=== PATIENT | male | born 1950 | race Caucasian/White ===

== ENCOUNTER 2020-12-03 04:10 | Day surgery (SDC) | payer OTHER ==
[2020-11-30 14:33] VITALS: BMI 24.9
[2020-12-03] MEDS ORDERED: LIDOCAINE HCL 1%, 10 MG/ML (20ML VIAL) PNB ONE (12:50)
[2020-12-03] MEDS ORDERED: ONDANSETRON 4 MG/2 ML VIAL IVPUSH PRN (14:03)
[2020-12-03] MEDS ORDERED: ACETAMINOPHEN 325 MG TABLET (FP) PO PRN (14:03)
[2020-12-03 15:13] VITALS: TEMP 98
[2020-12-03 15:34] VITALS: BP 163/68; PULSE 80
== END 2020-12-03 15:40 | disposition home or self-care (01) ==
LOC: JASU-SURG 04:10
PROVIDERS: ATTEND Surgery Vascular Surgery
PROC: 03180ZD Bypass Left Brachial Artery to Upper Arm Vein, Open Approach (ICD-10-PCS; principal; 2020-12-03 10:30)
DX: I12.0 Hypertensive chronic kidney disease with stage 5 chronic kidney disease or end stage renal disease (principal); E11.22 Type 2 diabetes mellitus with diabetic chronic kidney disease; N18.6 End stage renal disease; Z99.2 Dependence on renal dialysis
CPT/HCPCS: 94760; J1644

== ENCOUNTER 2021-03-04 04:05 | Inpatient (IN) | payer OTHER ==
[2021-03-03 16:26] VITALS: BMI 24.3
[2021-03-04] MEDS ORDERED: PROPOFOL 20 ML ONE (11:14)
[2021-03-04] MEDS ORDERED: MIDAZOLAM HCL 2 MG/2 ML SINGLE DOSE VIAL ONE (11:15)
[2021-03-04] MEDS ORDERED: ceFAZolin SODIUM 1 GM VIAL IVPB ONE (11:35)
[2021-03-04] MEDS ORDERED: ceFAZolin SODIUM 1 GM VIAL ONE (11:41)
[2021-03-04] MEDS ORDERED: LIDOCAINE HCL 1%, 10 MG/ML (20ML VIAL) INF ONE (11:43)
[2021-03-04] MEDS ORDERED: HEPARIN NA (PORCINE) 5,000 UNITS/ML 1ML VIAL SQ ONE (12:00)
[2021-03-04] MEDS ORDERED: FUROSEMIDE 40 MG/4 ML INJECTABLE VIAL IVPUSH ONE ×2 (14:30→17:23)
[2021-03-04] MEDS ORDERED: FUROSEMIDE 40 MG/4 ML INJECTABLE VIAL ONE (14:42)
[2021-03-04 18:29] LABS: BASO % 0.4 % (0-2.0); EOS % 1.3 % (0-4.5); HEMATOCRIT 32.3 % (35.4-49); HEMOGLOBIN 10.9 GM/dL (11.7-16.9); LYMPH % 18.3 % (8-40); MCH 34.2 pg (25.7-33.7); MCHC 33.9 g/dl (32.0-35.9); MEAN CELL VOLUME 100.9 fl (80-96); MEAN PLT VOLUME 8.8 fl (7.5-11.1); MONO % 16.5 % (3.8-10.2); NEUT % 63.5 % (42.8-82.8); PLATELET COUNT 169 K/MM3 (134-434); RDW 15.9 % (11.9-15.9); WHITE BLOOD COUNT 6.9 K/mm3 (4.0-10.0)
[2021-03-04 18:33] LABS: INR 1.1 (0.83-1.09); PROTHROMBIN TIME (PATIENT) 13.3 SEC (9.7-13.0)
[2021-03-04 18:36] LABS: ACTIVATED PTT 27.4 SECONDS (25.2-36.5)
[2021-03-04 18:47] LABS: CALCIUM 7.7 mg/dL (8.5-10.1)
[2021-03-04 18:48] LABS: ALBUMIN 2.4 g/dl (3.4-5.0); BLOOD UREA NITROGEN 77.9 mg/dL (7-18); MAGNESIUM 2.3 mg/dL (1.8-2.4)
[2021-03-04 18:51] LABS: CREATININE 4.1 mg/dL (0.55-1.3); PHOSPHOROUS 4.1 mg/dL (2.5-4.9)
[2021-03-04 18:52] LABS: BILIRUBIN,TOTAL 0.6 mg/dL (0.2-1); TOT PROT 5.8 g/dl (6.4-8.2)
[2021-03-04 19:26] LABS: N-TERMINAL BNP 42122.8 pg/ml (5-125)
[2021-03-04] MEDS: FUROSEMIDE 40 MG TABLET (FP) PO SCH (21:35)
[2021-03-05] MEDS ORDERED: PATIENT'S OWN MEDICATION (NON-FORMULARY) (Hydralazine Hcl [Hydralazine Hcl] 100 MG Tablet) PO SCH (08:30)
[2021-03-05] MEDS ORDERED: SODIUM ZIRCONIUM CYCLOSILICATE (LOKELMA) 5 GM PACKET PO SCH (08:30)
[2021-03-05] MEDS: FUROSEMIDE 40 MG TABLET (FP) PO SCH ×2 (09:24→21:23)
[2021-03-05] MEDS: CITALOPRAM HYDROBROMIDE 20 MG TABLET PO SCH (09:24)
[2021-03-05] MEDS: ISOSORBIDE MONONITRATE 60 MG TAB.SR.24H (FP) PO SCH (09:29)
[2021-03-05] MEDS ORDERED: APIXABAN 5 MG TABLET PO SCH (10:00)
[2021-03-05] MEDS: hydrALAZINE HCL 25 MG TABLET (FP) PO SCH ×3 (10:47→21:23)
[2021-03-05 11:51] LABS: BASO % 0.3 % (0-2.0); EOS % 1.1 % (0-4.5); HEMOGLOBIN 10.9 GM/dL (11.7-16.9); LYMPH % 9.9 % (8-40); MCH 33.9 pg (25.7-33.7); MCHC 33.2 g/dl (32.0-35.9); MEAN CELL VOLUME 102.3 fl (80-96); MEAN PLT VOLUME 8.5 fl (7.5-11.1); MONO % 11.3 % (3.8-10.2); NEUT % 77.4 % (42.8-82.8); PLATELET COUNT 164 K/MM3 (134-434); RBC 3.22 M/mm3 (4.00-5.60); RDW 15.7 % (11.9-15.9); WHITE BLOOD COUNT 8.4 K/mm3 (4.0-10.0)
[2021-03-05 12:23] LABS: CALCIUM 7.6 mg/dL (8.5-10.1)
[2021-03-05 12:24] LABS: ALBUMIN 2.3 g/dl (3.4-5.0)
[2021-03-05 12:28] LABS: BILIRUBIN,TOTAL 0.8 mg/dL (0.2-1); TOT PROT 5.4 g/dl (6.4-8.2)
[2021-03-05] MEDS ORDERED: HALOPERIDOL LACTATE 5 MG/ML IM ONE (15:01)
[2021-03-05] MEDS ORDERED: PT OWN MED DRAWER 7, Y5N ONE (21:17)
[2021-03-05] MEDS: MEMANTINE HCL 5 MG TABLET (UD) PO SCH (21:23)
[2021-03-05] MEDS: APIXABAN 5 MG TABLET PO SCH (21:23)
[2021-03-05] MEDS: ATORVASTATIN CA 80 MG TABLET (FP) PO SCH (21:23)
[2021-03-06] MEDS: hydrALAZINE HCL 25 MG TABLET (FP) PO SCH ×3 (05:22→21:27)
[2021-03-06] MEDS: CITALOPRAM HYDROBROMIDE 20 MG TABLET PO SCH (09:13)
[2021-03-06] MEDS: ISOSORBIDE MONONITRATE 60 MG TAB.SR.24H (FP) PO SCH (09:13)
[2021-03-06] MEDS: FUROSEMIDE 40 MG TABLET (FP) PO SCH ×2 (09:13→21:27)
[2021-03-06] MEDS: APIXABAN 5 MG TABLET PO SCH ×2 (09:13→21:27)
[2021-03-06 12:56] LABS: BASO % 0.5 % (0-2.0); HEMATOCRIT 35.6 % (35.4-49); HEMOGLOBIN 11.9 GM/dL (11.7-16.9); LYMPH % 9.2 % (8-40); MCH 33.9 pg (25.7-33.7); MCHC 33.5 g/dl (32.0-35.9); MEAN CELL VOLUME 101.1 fl (80-96); MONO % 11.5 % (3.8-10.2); NEUT % 76.8 % (42.8-82.8); PLATELET COUNT 167 K/MM3 (134-434); RBC 3.52 M/mm3 (4.00-5.60); WHITE BLOOD COUNT 8.9 K/mm3 (4.0-10.0)
[2021-03-06 13:19] LABS: ALBUMIN 2.6 g/dl (3.4-5.0); BLOOD UREA NITROGEN 68.7 mg/dL (7-18); CALCIUM 7.9 mg/dL (8.5-10.1)
[2021-03-06 13:23] LABS: CREATININE 3.6 mg/dL (0.55-1.3)
[2021-03-06 13:25] LABS: TOT PROT 6.3 g/dl (6.4-8.2)
[2021-03-06] MEDS ORDERED: PT OWN MED DRAWER 7, Y5N ONE (21:23)
[2021-03-06] MEDS: ATORVASTATIN CA 80 MG TABLET (FP) PO SCH (21:27)
[2021-03-06] MEDS: MEMANTINE HCL 5 MG TABLET (UD) PO SCH (21:27)
[2021-03-07] MEDS: hydrALAZINE HCL 25 MG TABLET (FP) PO SCH ×3 (05:40→20:59)
[2021-03-07 07:06] LABS: BLOOD UREA NITROGEN 72.2 mg/dL (7-18)
[2021-03-07] MEDS: APIXABAN 5 MG TABLET PO SCH ×2 (09:41→21:00)
[2021-03-07] MEDS: CITALOPRAM HYDROBROMIDE 20 MG TABLET PO SCH (09:41)
[2021-03-07] MEDS ORDERED: ALBUTEROL SO4 HFA INHALER IH PRN (09:41)
[2021-03-07] MEDS: FUROSEMIDE 40 MG TABLET (FP) PO SCH ×2 (09:41→21:00)
[2021-03-07] MEDS: ISOSORBIDE MONONITRATE 60 MG TAB.SR.24H (FP) PO SCH (09:41)
[2021-03-07] MEDS: ALBUTEROL SO4 2.5/IPRATROPIUM 0.5 INH SOL 3 ML VIAL.NEB. NEB PRN ×2 (10:04→21:00)
[2021-03-07] MEDS ORDERED: PT OWN MED DRAWER 7, Y5N ONE (20:50)
[2021-03-07] MEDS: MEMANTINE HCL 5 MG TABLET (UD) PO SCH (21:01)
[2021-03-07] MEDS: ATORVASTATIN CA 80 MG TABLET (FP) PO SCH (21:01)
[2021-03-08] MEDS: hydrALAZINE HCL 25 MG TABLET (FP) PO SCH ×3 (05:18→21:19)
[2021-03-08] MEDS: CITALOPRAM HYDROBROMIDE 20 MG TABLET PO SCH (09:06)
[2021-03-08] MEDS: FUROSEMIDE 40 MG TABLET (FP) PO SCH (09:06)
[2021-03-08] MEDS: APIXABAN 5 MG TABLET PO SCH ×2 (09:06→21:19)
[2021-03-08] MEDS: ISOSORBIDE MONONITRATE 60 MG TAB.SR.24H (FP) PO SCH (09:06)
[2021-03-08] MEDS ORDERED: FUROSEMIDE 40 MG/4 ML INJECTABLE VIAL IVPUSH SCH ×2 (13:06→20:00)
[2021-03-08] MEDS ORDERED: PT OWN MED DRAWER 7, Y5N ONE (21:03)
[2021-03-08] MEDS: ATORVASTATIN CA 80 MG TABLET (FP) PO SCH (21:19)
[2021-03-08] MEDS: MEMANTINE HCL 5 MG TABLET (UD) PO SCH (21:19)
[2021-03-08 23:15] VITALS: BP 145/58; PULSE 73; TEMP 97.5
== END 2021-03-08 22:45 | DRG 447 ==
LOC: JASU-SURG 04:05 → J2C 16:52 → UNDOADMIN 17:06 → J4S 20:10
PROVIDERS: ADMIT Surgery Vascular Surgery; ATTEND Student in an Organized Health Care Education/Training Program
PROC: 037Y3ZZ Dilation of Upper Artery, Percutaneous Approach (ICD-10-PCS; 2021-03-04)
PROC: B50NYZZ Plain Radiography of Left Upper Extremity Veins using Other Contrast (ICD-10-PCS; principal; 2021-03-04 10:30)
DX: I12.0 Hypertensive chronic kidney disease with stage 5 chronic kidney disease or end stage renal disease (principal); I48.91 Unspecified atrial fibrillation; F03.90 Unspecified dementia, unspecified severity, without behavioral disturbance, psychotic disturbance, mood disturbance, and anxiety; N18.6 End stage renal disease; J44.9 Chronic obstructive pulmonary disease, unspecified; E87.6 Hypokalemia; Z79.01 Long term (current) use of anticoagulants; Z99.2 Dependence on renal dialysis
CPT/HCPCS: 36415; 71045-TC-FY; 76000-TC-FY; 80048; 80053; 80061; 83036; 83721; 83735; 83880; 84100; 84436; 84443; 84484; 85025; 85610; 85730; 94010; 94640; 94760; 94761; 97116-GP; 97161-GP; C9803; J1644; U0003; U0005

== ENCOUNTER 2021-03-20 16:40 | Inpatient (IN) | payer OTHER ==
[2021-03-20 17:11] VITALS: BMI 29.7
[2021-03-20 18:08] LABS: VENOUS BASE EXCESS 0.5 mmol/L (-2-2); VENOUS O2 SATURATION 87.2 % (70-80); VENOUS PCO2 43.7 mmHg (38-52); VENOUS PH 7.387 (7.310-7.410)
[2021-03-20 18:11] LABS: BASO % 0.7 % (0-2.0); EOS % 0.1 % (0-4.5); MCH 33.4 pg (25.7-33.7); MCHC 33.3 g/dl (32.0-35.9); MEAN CELL VOLUME 100.2 fl (80-96); MONO % 4.2 % (3.8-10.2); PLATELET COUNT 265 10^3/uL (134-434); RBC 3.59 M/mm3 (4.00-5.60); RDW 15.6 % (11.9-15.9); WHITE BLOOD COUNT 10.5 K/mm3 (4.0-10.0)
[2021-03-20 18:16] LABS: INR 1.34 (0.83-1.09); PROTHROMBIN TIME (PATIENT) 16.1 SEC (9.7-13.0)
[2021-03-20 18:19] LABS: ACTIVATED PTT 26.4 SECONDS (25.2-36.5)
[2021-03-20 18:34] LABS: CHLORIDE 102 mmol/L (98-107); SODIUM 136 mmol/L (136-145)
[2021-03-20 18:36] LABS: CALCIUM 8.5 mg/dL (8.5-10.1)
[2021-03-20 18:37] LABS: ALBUMIN 2.7 g/dl (3.4-5.0); ANION GAP 10 MMOL/L (8-16); CO2 24 mmol/L (21-32); MAGNESIUM 2.8 mg/dL (1.8-2.4)
[2021-03-20 18:40] LABS: CREATININE 3.7 mg/dL (0.55-1.3); SGPT/ALT 350 U/L (13-61)
[2021-03-20 18:41] LABS: BILIRUBIN,TOTAL 0.5 mg/dL (0.2-1)
[2021-03-20 18:42] LABS: TOT PROT 6.5 g/dl (6.4-8.2)
[2021-03-20 18:43] LABS: ALK PHOS 133 U/L (45-117)
[2021-03-20 18:51] LABS: SGOT/AST 988 U/L (15-37)
[2021-03-20 19:02] LABS: BLOOD UREA NITROGEN 120.8 mg/dL (7-18); GLUCOSE,RANDOM 109 mg/dL (74-106)
[2021-03-21 00:27] LABS: CHLORIDE 102 mmol/L (98-107); SODIUM 136 mmol/L (136-145)
[2021-03-21 00:28] LABS: CALCIUM 8.3 mg/dL (8.5-10.1)
[2021-03-21 00:29] LABS: ANION GAP 8 MMOL/L (8-16); CO2 26 mmol/L (21-32); GLUCOSE,RANDOM 80 mg/dL (74-106)
[2021-03-21 00:32] LABS: CREATININE 3.8 mg/dL (0.55-1.3)
[2021-03-21] MEDS ORDERED: ALBUTEROL SO4 2.5/IPRATROPIUM 0.5 INH SOL 3 ML VIAL.NEB. NEB PRN (03:36)
[2021-03-21] MEDS ORDERED: SODIUM ZIRCONIUM CYCLOSILICATE (LOKELMA) 5 GM PACKET PO SCH (03:45)
[2021-03-21] MEDS ORDERED: hydrALAZINE HCL 25 MG TABLET (FP) ONE (05:12)
[2021-03-21] MEDS: hydrALAZINE HCL 50 MG TABLET (FP) PO SCH ×3 (05:15→21:10)
[2021-03-21] MEDS ORDERED: DEXTROSE 5%-NORMAL SALINE 1,000 ML IV SCH ×2 (08:00)
[2021-03-21] MEDS ORDERED: ISOSORBIDE MONONITRATE 60 MG TAB.SR.24H (FP) PO ONE (08:56)
[2021-03-21] MEDS ORDERED: APIXABAN 5 MG TABLET ONE (08:56)
[2021-03-21] MEDS ORDERED: predniSONE 10 MG TABLET (UD) ONE (08:56)
[2021-03-21] MEDS: CITALOPRAM HYDROBROMIDE 20 MG TABLET PO SCH (09:01)
[2021-03-21] MEDS: predniSONE 10 MG TABLET (UD) PO SCH (09:01)
[2021-03-21] MEDS: ISOSORBIDE MONONITRATE 60 MG TAB.SR.24H (FP) PO SCH (09:01)
[2021-03-21] MEDS: APIXABAN 5 MG TABLET PO SCH ×2 (09:01→21:10)
[2021-03-21 12:20] LABS: BASO % 0.5 % (0-2.0); EOS % 0.5 % (0-4.5); HEMATOCRIT 38.6 % (35.4-49); HEMOGLOBIN 12.8 GM/dL (11.7-16.9); LYMPH % 6.4 % (8-40); MCH 33.4 pg (25.7-33.7); MCHC 33.1 g/dl (32.0-35.9); MEAN CELL VOLUME 100.9 fl (80-96); MEAN PLT VOLUME 8.5 fl (7.5-11.1); NEUT % 88.6 % (42.8-82.8); PLATELET COUNT 273 10^3/uL (134-434); RBC 3.82 M/mm3 (4.00-5.60); RDW 15.6 % (11.9-15.9); WHITE BLOOD COUNT 13.3 K/mm3 (4.0-10.0)
[2021-03-21 12:46] LABS: CHLORIDE 100 mmol/L (98-107); SODIUM 135 mmol/L (136-145)
[2021-03-21 12:48] LABS: CALCIUM 8.5 mg/dL (8.5-10.1)
[2021-03-21 12:49] LABS: ALBUMIN 2.6 g/dl (3.4-5.0); ANION GAP 11 MMOL/L (8-16); CO2 23 mmol/L (21-32); GLUCOSE,RANDOM 143 mg/dL (74-106); MAGNESIUM 2.8 mg/dL (1.8-2.4)
[2021-03-21 12:52] LABS: CREATININE 3.8 mg/dL (0.55-1.3); SGPT/ALT 430 U/L (13-61)
[2021-03-21 12:54] LABS: BILIRUBIN,TOTAL 0.8 mg/dL (0.2-1); TOT PROT 6.4 g/dl (6.4-8.2)
[2021-03-21 12:55] LABS: ALK PHOS 115 U/L (45-117)
[2021-03-21 13:39] LABS: BLOOD UREA NITROGEN 121.6 mg/dL (7-18); SGOT/AST 1183 U/L (15-37)
[2021-03-21] MEDS ORDERED: SODIUM CHLORIDE 250 ML IV PRN (14:41)
[2021-03-21] MEDS: SODIUM ZIRCONIUM CYCLOSILICATE (LOKELMA) 5 GM PACKET PO SCH (15:15)
[2021-03-21] MEDS ORDERED: ACETAMINOPHEN 325 MG TABLET (FP) PO PRN ×2 (17:15→17:28)
[2021-03-21] MEDS: MEMANTINE HCL 5 MG TABLET (UD) PO SCH (21:10)
[2021-03-22] MEDS: hydrALAZINE HCL 50 MG TABLET (FP) PO SCH ×3 (05:23→22:37)
[2021-03-22 06:47] LABS: HEMOGLOBIN 12.2 GM/dL (11.7-16.9); MCH 33.2 pg (25.7-33.7); MCHC 33.1 g/dl (32.0-35.9); MEAN CELL VOLUME 100.3 fl (80-96); PLATELET COUNT 261 10^3/uL (134-434); RBC 3.69 M/mm3 (4.00-5.60); RDW 15.7 % (11.9-15.9); WHITE BLOOD COUNT 13.6 K/mm3 (4.0-10.0)
[2021-03-22 07:06] LABS: CHLORIDE 100 mmol/L (98-107); SODIUM 135 mmol/L (136-145)
[2021-03-22 07:18] LABS: ALBUMIN 2.3 g/dl (3.4-5.0); ANION GAP 12 MMOL/L (8-16); CO2 23 mmol/L (21-32); GLUCOSE,RANDOM 67 mg/dL (74-106); MAGNESIUM 2.9 mg/dL (1.8-2.4)
[2021-03-22 07:21] LABS: SGPT/ALT 493 U/L (13-61)
[2021-03-22 07:22] LABS: BILIRUBIN,TOTAL 0.7 mg/dL (0.2-1)
[2021-03-22 07:23] LABS: TOT PROT 5.7 g/dl (6.4-8.2)
[2021-03-22 07:24] LABS: ALK PHOS 101 U/L (45-117)
[2021-03-22 08:00] LABS: SGOT/AST 1380 U/L (15-37)
[2021-03-22] MEDS ORDERED: SODIUM CHLORIDE 1,000 ML IV SCH ×2 (08:45→11:44)
[2021-03-22] MEDS: APIXABAN 5 MG TABLET PO SCH ×2 (10:42→22:37)
[2021-03-22] MEDS: CITALOPRAM HYDROBROMIDE 20 MG TABLET PO SCH (10:42)
[2021-03-22] MEDS: predniSONE 10 MG TABLET (UD) PO SCH (10:42)
[2021-03-22] MEDS: ISOSORBIDE MONONITRATE 60 MG TAB.SR.24H (FP) PO SCH (10:43)
[2021-03-22] MEDS: SODIUM ZIRCONIUM CYCLOSILICATE (LOKELMA) 5 GM PACKET PO SCH (10:43)
[2021-03-22] MEDS: MEMANTINE HCL 5 MG TABLET (UD) PO SCH (22:37)
[2021-03-23] MEDS: hydrALAZINE HCL 50 MG TABLET (FP) PO SCH ×3 (05:45→22:49)
[2021-03-23 07:39] LABS: CHLORIDE 102 mmol/L (98-107); SODIUM 136 mmol/L (136-145)
[2021-03-23 07:42] LABS: ALBUMIN 2.1 g/dl (3.4-5.0)
[2021-03-23 07:43] LABS: ANION GAP 12 MMOL/L (8-16); CALCIUM 7.5 mg/dL (8.5-10.1); CO2 22 mmol/L (21-32)
[2021-03-23 07:44] LABS: BILIRUBIN,DIRECT 0.2 mg/dL (0.0-0.2); CREATININE 4.3 mg/dL (0.55-1.3); SGPT/ALT 654 U/L (13-61)
[2021-03-23 07:46] LABS: BILIRUBIN,TOTAL 0.6 mg/dL (0.2-1); TOT PROT 5.4 g/dl (6.4-8.2)
[2021-03-23 07:47] LABS: ALK PHOS 91 U/L (45-117)
[2021-03-23 07:56] LABS: BLOOD UREA NITROGEN 117.1 mg/dL (7-18); GLUCOSE,RANDOM 83 mg/dL (74-106); SGOT/AST 1801 U/L (15-37)
[2021-03-23 08:10] LABS: INR 1.35 (0.83-1.09); PROTHROMBIN TIME (PATIENT) 16.5 SEC (9.7-13.0)
[2021-03-23] MEDS ORDERED: PT OWN MED DRAWER 7, Y5N ONE (09:02)
[2021-03-23] MEDS: APIXABAN 5 MG TABLET PO SCH ×2 (09:51→22:49)
[2021-03-23] MEDS: CITALOPRAM HYDROBROMIDE 20 MG TABLET PO SCH (09:51)
[2021-03-23] MEDS: SODIUM ZIRCONIUM CYCLOSILICATE (LOKELMA) 5 GM PACKET PO SCH (09:52)
[2021-03-23] MEDS: predniSONE 10 MG TABLET (UD) PO SCH (09:54)
[2021-03-23] MEDS: ISOSORBIDE MONONITRATE 60 MG TAB.SR.24H (FP) PO SCH (09:54)
[2021-03-23] MEDS: MEMANTINE HCL 5 MG TABLET (UD) PO SCH (22:49)
[2021-03-24] MEDS: hydrALAZINE HCL 50 MG TABLET (FP) PO SCH ×3 (06:00→21:38)
[2021-03-24 08:43] LABS: EPI CELLS >36 /uL (0-25.1); HYALINE CASTS 2 /uL (0-3.1); URINE APPEARANCE CLEAR; URINE BACTERIA 31 /uL (0-1359); URINE BILIRUBIN NEGATIVE (NEGATIVE); URINE COLOR ORANGE; URINE GLUCOSE (UA) NEGATIVE (NEGATIVE); URINE KETONE NEGATIVE (NEGATIVE); URINE LEUK ESTERASE TRACE (NEGATIVE); URINE NITRITE NEGATIVE (NEGATIVE); URINE PROTEIN 3+ (NEGATIVE); URINE RBC 44 /uL (0-23.9); URINE WBC 26 /uL (0-25.8)
[2021-03-24] MEDS: predniSONE 10 MG TABLET (UD) PO SCH (09:38)
[2021-03-24] MEDS: ISOSORBIDE MONONITRATE 60 MG TAB.SR.24H (FP) PO SCH (09:38)
[2021-03-24] MEDS: APIXABAN 5 MG TABLET PO SCH ×2 (09:38→21:38)
[2021-03-24] MEDS: CITALOPRAM HYDROBROMIDE 20 MG TABLET PO SCH (09:38)
[2021-03-24] MEDS: MEMANTINE HCL 5 MG TABLET (UD) PO SCH (21:38)
[2021-03-25] MEDS: hydrALAZINE HCL 50 MG TABLET (FP) PO SCH ×3 (06:37→21:31)
[2021-03-25] MEDS: APIXABAN 5 MG TABLET PO SCH ×2 (13:36→21:31)
[2021-03-25] MEDS: CITALOPRAM HYDROBROMIDE 20 MG TABLET PO SCH (13:36)
[2021-03-25] MEDS: ISOSORBIDE MONONITRATE 60 MG TAB.SR.24H (FP) PO SCH (13:36)
[2021-03-25] MEDS: predniSONE 10 MG TABLET (UD) PO SCH (13:36)
[2021-03-25 13:48] LABS: BASO % 0.4 % (0-2.0); EOS % 2.2 % (0-4.5); HEMATOCRIT 38.9 % (35.4-49); HEMOGLOBIN 12.5 GM/dL (11.7-16.9); LYMPH % 7.3 % (8-40); MCH 32.6 pg (25.7-33.7); MEAN CELL VOLUME 101.8 fl (80-96); MEAN PLT VOLUME 8.7 fl (7.5-11.1); MONO % 5.1 % (3.8-10.2); PLATELET COUNT 250 10^3/uL (134-434); RBC 3.82 M/mm3 (4.00-5.60); WHITE BLOOD COUNT 12.9 K/mm3 (4.0-10.0)
[2021-03-25 14:11] LABS: CHLORIDE 99 mmol/L (98-107); SODIUM 135 mmol/L (136-145)
[2021-03-25 14:13] LABS: ALBUMIN 2.1 g/dl (3.4-5.0); ANION GAP 11 MMOL/L (8-16); BLOOD UREA NITROGEN 103.7 mg/dL (7-18); CALCIUM 7.8 mg/dL (8.5-10.1); CO2 25 mmol/L (21-32)
[2021-03-25 14:14] LABS: GLUCOSE,RANDOM 101 mg/dL (74-106)
[2021-03-25 14:16] LABS: BILIRUBIN,DIRECT 0.2 mg/dL (0.0-0.2); SGPT/ALT 845 U/L (13-61)
[2021-03-25 14:17] LABS: CREATININE 4.1 mg/dL (0.55-1.3)
[2021-03-25 14:18] LABS: BILIRUBIN,TOTAL 0.5 mg/dL (0.2-1); TOT PROT 5.1 g/dl (6.4-8.2)
[2021-03-25 14:19] LABS: ALK PHOS 75 U/L (45-117)
[2021-03-25 14:44] LABS: SGOT/AST 1531 U/L (15-37)
[2021-03-25] MEDS ORDERED: SODIUM CHLORIDE 1,000 ML IV SCH (17:00)
[2021-03-25] MEDS ORDERED: SODIUM CHLORIDE 250 ML IV PRN (17:00)
[2021-03-25] MEDS: MEMANTINE HCL 5 MG TABLET (UD) PO SCH (21:31)
[2021-03-26] MEDS: hydrALAZINE HCL 50 MG TABLET (FP) PO SCH ×3 (05:05→21:08)
[2021-03-26] MEDS ORDERED: SODIUM CHLORIDE 250 ML IV PRN (08:54)
[2021-03-26 08:57] LABS: HEMATOCRIT 38.5 % (35.4-49); HEMOGLOBIN 12.7 GM/dL (11.7-16.9); MCH 33.3 pg (25.7-33.7); MEAN CELL VOLUME 100.8 fl (80-96); MEAN PLT VOLUME 8.6 fl (7.5-11.1); PLATELET COUNT 224 10^3/uL (134-434); RBC 3.82 M/mm3 (4.00-5.60); RDW 16.3 % (11.9-15.9); WHITE BLOOD COUNT 15.2 K/mm3 (4.0-10.0)
[2021-03-26 09:18] LABS: CALCIUM 8.2 mg/dL (8.5-10.1)
[2021-03-26 09:19] LABS: BLOOD UREA NITROGEN 103.6 mg/dL (7-18)
[2021-03-26 09:22] LABS: CREATININE 4.4 mg/dL (0.55-1.3)
[2021-03-26] MEDS ORDERED: HEPARIN NA (PORCINE) 5,000 UNITS/ML 1ML VIAL IVPUSH ONE (10:15)
[2021-03-26] MEDS: APIXABAN 5 MG TABLET PO SCH ×2 (13:42→21:09)
[2021-03-26] MEDS: predniSONE 10 MG TABLET (UD) PO SCH (13:42)
[2021-03-26] MEDS: CITALOPRAM HYDROBROMIDE 20 MG TABLET PO SCH (13:42)
[2021-03-26] MEDS: ISOSORBIDE MONONITRATE 60 MG TAB.SR.24H (FP) PO SCH (13:43)
[2021-03-26] MEDS: MEMANTINE HCL 5 MG TABLET (UD) PO SCH (21:08)
[2021-03-27] MEDS: hydrALAZINE HCL 50 MG TABLET (FP) PO SCH ×3 (05:02→22:44)
[2021-03-27 08:05] LABS: BASO % 0.5 % (0-2.0); EOS % 0.8 % (0-4.5); HEMATOCRIT 37.2 % (35.4-49); HEMOGLOBIN 12.1 GM/dL (11.7-16.9); LYMPH % 11.4 % (8-40); MCH 32.9 pg (25.7-33.7); MCHC 32.5 g/dl (32.0-35.9); MEAN CELL VOLUME 101.1 fl (80-96); MEAN PLT VOLUME 9.6 fl (7.5-11.1); MONO % 6.1 % (3.8-10.2); NEUT % 81.2 % (42.8-82.8); PLATELET COUNT 229 10^3/uL (134-434); RBC 3.68 M/mm3 (4.00-5.60); WHITE BLOOD COUNT 14.5 K/mm3 (4.0-10.0)
[2021-03-27 08:23] LABS: CHLORIDE 100 mmol/L (98-107); SODIUM 137 mmol/L (136-145)
[2021-03-27 08:35] LABS: CALCIUM 7.5 mg/dL (8.5-10.1)
[2021-03-27 08:36] LABS: ANION GAP 9 MMOL/L (8-16); CO2 28 mmol/L (21-32); GLUCOSE,RANDOM 67 mg/dL (74-106)
[2021-03-27 08:39] LABS: CREATININE 3.3 mg/dL (0.55-1.3); SGOT/AST 937 U/L (15-37)
[2021-03-27 08:41] LABS: ALK PHOS 67 U/L (45-117)
[2021-03-27 08:42] LABS: BILIRUBIN,TOTAL 0.6 mg/dL (0.2-1); SGPT/ALT 724 U/L (13-61)
[2021-03-27 09:10] LABS: BLOOD UREA NITROGEN 60.9 mg/dL (7-18)
[2021-03-27] MEDS: ISOSORBIDE MONONITRATE 60 MG TAB.SR.24H (FP) PO SCH (09:28)
[2021-03-27] MEDS: CITALOPRAM HYDROBROMIDE 20 MG TABLET PO SCH (09:28)
[2021-03-27] MEDS: predniSONE 10 MG TABLET (UD) PO SCH (09:28)
[2021-03-27] MEDS: APIXABAN 5 MG TABLET PO SCH ×2 (09:28→22:44)
[2021-03-27 10:07] LABS: DRVVT - 78.2 sec (0.0-47.0); DRVVT CONFIRM SECONDS 0.9 ratio (0.8-1.2); dRVVT MIX 49.4 sec (0.0-40.4)
[2021-03-27] MEDS: MEMANTINE HCL 5 MG TABLET (UD) PO SCH (22:44)
[2021-03-28] MEDS: hydrALAZINE HCL 50 MG TABLET (FP) PO SCH ×3 (05:52→22:23)
[2021-03-28] MEDS: ISOSORBIDE MONONITRATE 60 MG TAB.SR.24H (FP) PO SCH (09:00)
[2021-03-28] MEDS: CITALOPRAM HYDROBROMIDE 20 MG TABLET PO SCH (09:00)
[2021-03-28] MEDS: predniSONE 10 MG TABLET (UD) PO SCH (09:00)
[2021-03-28] MEDS: APIXABAN 5 MG TABLET PO SCH ×2 (09:01→22:23)
[2021-03-28] MEDS ORDERED: SODIUM CHLORIDE 250 ML IV PRN (22:00)
[2021-03-28] MEDS: MEMANTINE HCL 5 MG TABLET (UD) PO SCH (22:23)
[2021-03-29] MEDS: hydrALAZINE HCL 50 MG TABLET (FP) PO SCH ×3 (06:16→21:20)
[2021-03-29 06:58] LABS: HEMOGLOBIN 11.1 GM/dL (11.7-16.9); MCH 33.6 pg (25.7-33.7); MCHC 33.6 g/dl (32.0-35.9); MEAN CELL VOLUME 100.2 fl (80-96); MEAN PLT VOLUME 8.8 fl (7.5-11.1); PLATELET COUNT 207 10^3/uL (134-434); RDW 15.9 % (11.9-15.9); WHITE BLOOD COUNT 12.3 K/mm3 (4.0-10.0)
[2021-03-29 07:18] LABS: ALBUMIN 2.2 g/dl (3.4-5.0); BLOOD UREA NITROGEN 67.7 mg/dL (7-18)
[2021-03-29 07:21] LABS: CREATININE 3.9 mg/dL (0.55-1.3)
[2021-03-29 07:23] LABS: BILIRUBIN,TOTAL 0.6 mg/dL (0.2-1); TOT PROT 5.4 g/dl (6.4-8.2)
[2021-03-29] MEDS ORDERED: HEPARIN NA (PORCINE) 5,000 UNITS/ML 1ML VIAL IVPUSH ONE (07:45)
[2021-03-29] MEDS: predniSONE 10 MG TABLET (UD) PO SCH (10:44)
[2021-03-29] MEDS: ISOSORBIDE MONONITRATE 60 MG TAB.SR.24H (FP) PO SCH (10:44)
[2021-03-29] MEDS: CITALOPRAM HYDROBROMIDE 20 MG TABLET PO SCH (10:47)
[2021-03-29] MEDS: APIXABAN 2.5 MG TABLET PO SCH ×2 (10:47→21:20)
[2021-03-29] MEDS: MEMANTINE HCL 5 MG TABLET (UD) PO SCH (21:20)
[2021-03-30] MEDS: hydrALAZINE HCL 50 MG TABLET (FP) PO SCH ×2 (06:13→15:12)
[2021-03-30] MEDS: ISOSORBIDE MONONITRATE 60 MG TAB.SR.24H (FP) PO SCH (09:11)
[2021-03-30] MEDS: CITALOPRAM HYDROBROMIDE 20 MG TABLET PO SCH (09:11)
[2021-03-30] MEDS: predniSONE 10 MG TABLET (UD) PO SCH (09:11)
[2021-03-30] MEDS: APIXABAN 2.5 MG TABLET PO SCH (09:11)
[2021-03-30 19:19] VITALS: BP 116/62; PULSE 69; TEMP 97.8
== END 2021-03-30 20:57 | DRG 194 ==
LOC: JER 16:40 → JERBED 19:07 → J4W 03-21 12:28
PROVIDERS: ADMIT Hospitalist; ATTEND Family Medicine
PROC: 5A1D70Z Performance of Urinary Filtration, Intermittent, Less than 6 Hours Per Day (ICD-10-PCS; principal; 2021-03-29)
DX: I13.2 Hypertensive heart and chronic kidney disease with heart failure and with stage 5 chronic kidney disease, or end stage renal disease (principal); G93.41 Metabolic encephalopathy; M62.82 Rhabdomyolysis; N18.6 End stage renal disease; R74.01 Elevation of levels of liver transaminase levels; F03.90 Unspecified dementia, unspecified severity, without behavioral disturbance, psychotic disturbance, mood disturbance, and anxiety; I24.8 Other forms of acute ischemic heart disease; I48.91 Unspecified atrial fibrillation; I50.9 Heart failure, unspecified; E78.5 Hyperlipidemia, unspecified; Z99.2 Dependence on renal dialysis; D72.829 Elevated white blood cell count, unspecified; K21.9 Gastro-esophageal reflux disease without esophagitis; I34.0 Nonrheumatic mitral (valve) insufficiency; E87.5 Hyperkalemia; R41.82 Altered mental status, unspecified
CPT/HCPCS: 36415; 71045-TC-FY; 76705-TC; 80048; 80053; 80074; 80076; 81003; 82140; 82550; 82553; 82803; 82977; 83735; 84484; 85025; 85027; 85610; 85613; 85651; 85730; 85732; 86038; 86162; 87040; 93005; 93010; 93306-TC; 97161-GP; 99285-25; C9803; J1644; U0003; U0005

== ENCOUNTER 2021-04-08 23:33 | Inpatient (IN) | payer OTHER ==
[2021-04-08 23:59] VITALS: BMI 25.0
[2021-04-09 02:05] LABS: BASO % 0.6 % (0-2.0); EOS % 0.2 % (0-4.5); HEMATOCRIT 33.3 % (35.4-49); HEMOGLOBIN 10.9 GM/dL (11.7-16.9); LYMPH % 13.2 % (8-40); MCH 33.2 pg (25.7-33.7); MCHC 32.7 g/dl (32.0-35.9); MEAN CELL VOLUME 101.5 fl (80-96); MEAN PLT VOLUME 9.3 fl (7.5-11.1); MONO % 6.8 % (3.8-10.2); NEUT % 79.2 % (42.8-82.8); PLATELET COUNT 197 10^3/uL (134-434); RBC 3.29 M/mm3 (4.00-5.60); WHITE BLOOD COUNT 13.8 K/mm3 (4.0-10.0)
[2021-04-09 02:12] LABS: INR 1.03 (0.83-1.09); PROTHROMBIN TIME (PATIENT) 12.6 SEC (9.7-13.0)
[2021-04-09 02:15] LABS: ACTIVATED PTT 27.9 SECONDS (25.2-36.5)
[2021-04-09 02:25] LABS: CHLORIDE 102 mmol/L (98-107); SODIUM 132 mmol/L (136-145)
[2021-04-09 02:27] LABS: CALCIUM 7.9 mg/dL (8.5-10.1); GLUCOSE,RANDOM 85 mg/dL (74-106)
[2021-04-09 02:31] LABS: CREATININE 3.1 mg/dL (0.55-1.3)
[2021-04-09 02:32] LABS: TOT PROT 7.1 g/dl (6.4-8.2)
[2021-04-09 03:38] LABS: ALBUMIN 2.8 g/dl (3.4-5.0); ALK PHOS 112 U/L (45-117); ANION GAP 2 MMOL/L (8-16); BILIRUBIN,TOTAL 0.6 mg/dL (0.2-1); BLOOD UREA NITROGEN 28.9 mg/dL (7-18); CO2 28 mmol/L (21-32); SGOT/AST 104 U/L (15-37); SGPT/ALT 136 U/L (13-61)
[2021-04-09] MEDS ORDERED: LIDOCAINE 1%/EPI 1:100000 (50 ML MULTI DOSE VIAL) INF ONE (04:18)
[2021-04-09] MEDS ORDERED: LIDOCAINE 1%/EPI 1:100000 (20 ML MULTI DOSE VIAL) ONE (04:23)
[2021-04-09 04:41] LABS: N-TERMINAL BNP 19480.8 pg/ml (5-125)
[2021-04-09 06:29] LABS: CALCIUM 7.8 mg/dL (8.5-10.1)
[2021-04-09 06:30] LABS: BLOOD UREA NITROGEN 28.8 mg/dL (7-18)
[2021-04-09 08:32] LABS: CALCIUM 8.1 mg/dL (8.5-10.1)
[2021-04-09 08:33] LABS: BLOOD UREA NITROGEN 29.5 mg/dL (7-18)
[2021-04-09 08:36] LABS: CREATININE 3.1 mg/dL (0.55-1.3)
[2021-04-09] MEDS ORDERED: ALBUTEROL SO4 2.5/IPRATROPIUM 0.5 INH SOL 3 ML VIAL.NEB. NEB PRN (09:40)
[2021-04-09] MEDS ORDERED: predniSONE 10 MG TABLET (UD) ONE (10:26)
[2021-04-09] MEDS ORDERED: ISOSORBIDE MONONITRATE 60 MG TAB.SR.24H (FP) PO ONE (10:27)
[2021-04-09] MEDS: ISOSORBIDE MONONITRATE 60 MG TAB.SR.24H (FP) PO SCH (10:43)
[2021-04-09] MEDS: predniSONE 10 MG TABLET (UD) PO SCH (10:43)
[2021-04-09] MEDS ORDERED: SODIUM ZIRCONIUM CYCLOSILICATE (LOKELMA) 5 GM PACKET PO SCH (10:45)
[2021-04-09] MEDS ORDERED: SODIUM ZIRCONIUM CYCLOSILICATE (LOKELMA) 5 GM PACKET ONE (10:52)
[2021-04-09 11:34] LABS: BASO % 0.5 % (0-2.0); EOS % 1.3 % (0-4.5); HEMATOCRIT 31.9 % (35.4-49); HEMOGLOBIN 10.4 GM/dL (11.7-16.9); LYMPH % 17.2 % (8-40); MCH 33.3 pg (25.7-33.7); MCHC 32.6 g/dl (32.0-35.9); MEAN CELL VOLUME 102.5 fl (80-96); MEAN PLT VOLUME 8.8 fl (7.5-11.1); MONO % 7.7 % (3.8-10.2); NEUT % 73.3 % (42.8-82.8); PLATELET COUNT 165 10^3/uL (134-434); RBC 3.11 M/mm3 (4.00-5.60); RDW 16.5 % (11.9-15.9); WHITE BLOOD COUNT 10.8 K/mm3 (4.0-10.0)
[2021-04-09 11:46] LABS: CALCIUM 8.1 mg/dL (8.5-10.1)
[2021-04-09 11:47] LABS: ALBUMIN 2.8 g/dl (3.4-5.0); BLOOD UREA NITROGEN 27.9 mg/dL (7-18)
[2021-04-09 11:50] LABS: CREATININE 3.2 mg/dL (0.55-1.3)
[2021-04-09 11:51] LABS: BILIRUBIN,TOTAL 0.9 mg/dL (0.2-1)
[2021-04-09 11:52] LABS: TOT PROT 6.3 g/dl (6.4-8.2)
[2021-04-09] MEDS ORDERED: ALBUTEROL SO4 2.5/IPRATROPIUM 0.5 INH SOL 3 ML VIAL.NEB. NEB ONE (12:17)
[2021-04-09] MEDS ORDERED: SODIUM CHLORIDE 250 ML IV PRN (14:17)
[2021-04-09] MEDS: MEMANTINE HCL 5 MG TABLET (UD) PO SCH (21:44)
[2021-04-10 07:32] LABS: BASO % 0.5 % (0-2.0); EOS % 2.4 % (0-4.5); HEMATOCRIT 31.2 % (35.4-49); HEMOGLOBIN 10.2 GM/dL (11.7-16.9); MCH 33.5 pg (25.7-33.7); MCHC 32.8 g/dl (32.0-35.9); MEAN CELL VOLUME 102.1 fl (80-96); MONO % 11.2 % (3.8-10.2); NEUT % 68.9 % (42.8-82.8); PLATELET COUNT 147 10^3/uL (134-434); RBC 3.06 M/mm3 (4.00-5.60); RDW 16.7 % (11.9-15.9); WHITE BLOOD COUNT 10.9 K/mm3 (4.0-10.0)
[2021-04-10 07:56] LABS: ALBUMIN 2.4 g/dl (3.4-5.0); CALCIUM 7.7 mg/dL (8.5-10.1)
[2021-04-10 07:57] LABS: MAGNESIUM 1.8 mg/dL (1.8-2.4)
[2021-04-10 07:59] LABS: CREATININE 2.8 mg/dL (0.55-1.3); PHOSPHOROUS 2.4 mg/dL (2.5-4.9)
[2021-04-10 08:00] LABS: BILIRUBIN,TOTAL 0.6 mg/dL (0.2-1)
[2021-04-10 08:01] LABS: TOT PROT 5.7 g/dl (6.4-8.2)
[2021-04-10] MEDS: ISOSORBIDE MONONITRATE 60 MG TAB.SR.24H (FP) PO SCH (09:04)
[2021-04-10] MEDS: predniSONE 10 MG TABLET (UD) PO SCH (09:04)
[2021-04-10] MEDS ORDERED: APIXABAN 2.5 MG TABLET PO SCH (10:00)
[2021-04-10] MEDS: ACETAMINOPHEN 325 MG TABLET (FP) PO PRN (17:27)
[2021-04-10] MEDS: MEMANTINE HCL 5 MG TABLET (UD) PO SCH (21:33)
[2021-04-10] MEDS: guaiFENesin 200 MG/10 ML 10 ML UNIT-DOSE CUPS PO PRN (23:25)
[2021-04-11 06:45] LABS: BASO % 0.5 % (0-2.0); EOS % 3.3 % (0-4.5); HEMATOCRIT 29.4 % (35.4-49); HEMOGLOBIN 9.6 GM/dL (11.7-16.9); LYMPH % 21.9 % (8-40); MCH 33.6 pg (25.7-33.7); MCHC 32.5 g/dl (32.0-35.9); MEAN CELL VOLUME 103.1 fl (80-96); MEAN PLT VOLUME 8.9 fl (7.5-11.1); NEUT % 64.3 % (42.8-82.8); PLATELET COUNT 141 10^3/uL (134-434); RBC 2.85 M/mm3 (4.00-5.60); RDW 16.6 % (11.9-15.9); WHITE BLOOD COUNT 10.9 K/mm3 (4.0-10.0)
[2021-04-11 07:09] LABS: CALCIUM 7.6 mg/dL (8.5-10.1)
[2021-04-11 07:10] LABS: BLOOD UREA NITROGEN 37.3 mg/dL (7-18); MAGNESIUM 1.8 mg/dL (1.8-2.4)
[2021-04-11 07:13] LABS: CREATININE 3.4 mg/dL (0.55-1.3)
[2021-04-11] MEDS: predniSONE 10 MG TABLET (UD) PO SCH (09:04)
[2021-04-11] MEDS: ISOSORBIDE MONONITRATE 60 MG TAB.SR.24H (FP) PO SCH (09:04)
[2021-04-11] MEDS ORDERED: SODIUM CHLORIDE 250 ML IV PRN (14:22)
[2021-04-11] MEDS: guaiFENesin 200 MG/10 ML 10 ML UNIT-DOSE CUPS PO PRN (20:53)
[2021-04-11] MEDS: MEMANTINE HCL 5 MG TABLET (UD) PO SCH (21:36)
[2021-04-11] MEDS: ACETAMINOPHEN 325 MG TABLET (FP) PO PRN (23:21)
[2021-04-12] MEDS: ISOSORBIDE MONONITRATE 60 MG TAB.SR.24H (FP) PO SCH (09:31)
[2021-04-12] MEDS: predniSONE 10 MG TABLET (UD) PO SCH (09:31)
[2021-04-12] MEDS ORDERED: SODIUM ZIRCONIUM CYCLOSILICATE (LOKELMA) 5 GM PACKET PO ONE (17:42)
[2021-04-12] MEDS ORDERED: FUROSEMIDE 40 MG/4 ML INJECTABLE VIAL IVPUSH ONE (17:42)
[2021-04-12] MEDS: MEMANTINE HCL 5 MG TABLET (UD) PO SCH (21:21)
[2021-04-13] MEDS: predniSONE 10 MG TABLET (UD) PO SCH ×2 (08:20→09:23)
[2021-04-13] MEDS: ISOSORBIDE MONONITRATE 60 MG TAB.SR.24H (FP) PO SCH ×2 (08:20→09:23)
[2021-04-13 08:58] LABS: BASO % 0.5 % (0-2.0); EOS % 1.7 % (0-4.5); HEMATOCRIT 29.4 % (35.4-49); HEMOGLOBIN 9.8 GM/dL (11.7-16.9); LYMPH % 23.5 % (8-40); MCH 34.1 pg (25.7-33.7); MCHC 33.5 g/dl (32.0-35.9); MEAN CELL VOLUME 101.7 fl (80-96); MEAN PLT VOLUME 8.8 fl (7.5-11.1); MONO % 10.9 % (3.8-10.2); NEUT % 63.4 % (42.8-82.8); PLATELET COUNT 150 10^3/uL (134-434); RBC 2.89 M/mm3 (4.00-5.60); RDW 16.3 % (11.9-15.9); WHITE BLOOD COUNT 10.5 K/mm3 (4.0-10.0)
[2021-04-13 09:12] LABS: ALBUMIN 2.6 g/dl (3.4-5.0); BLOOD UREA NITROGEN 58.5 mg/dL (7-18); CALCIUM 8.5 mg/dL (8.5-10.1)
[2021-04-13 09:16] LABS: CREATININE 3.3 mg/dL (0.55-1.3)
[2021-04-13 09:17] LABS: BILIRUBIN,TOTAL 0.7 mg/dL (0.2-1); TOT PROT 6.3 g/dl (6.4-8.2)
[2021-04-13] MEDS ORDERED: HEPARIN NA (PORCINE) 5,000 UNITS/ML 1ML VIAL ONE (13:46)
[2021-04-13] MEDS ORDERED: LIDOCAINE HCL 1%, 10 MG/ML (20ML VIAL) ONE (13:46)
[2021-04-13] MEDS ORDERED: ceFAZolin 2 GRAM PREMIX BAG IVPB ONE (14:50)
[2021-04-13] MEDS ORDERED: MIDAZOLAM HCL 2 MG/2 ML SINGLE DOSE VIAL ONE (15:01)
[2021-04-13] MEDS ORDERED: PROPOFOL 20 ML ONE (15:02)
[2021-04-13] MEDS ORDERED: IOHEXOL 300 MG/ML INFUS..BTL IV ONE (15:47)
[2021-04-13] MEDS ORDERED: ONDANSETRON 4 MG/2 ML VIAL ONE (15:48)
[2021-04-13] MEDS ORDERED: LIDOCAINE HCL 1%, 10 MG/ML (20ML VIAL) INF ONE (15:57)
[2021-04-13] MEDS ORDERED: ONDANSETRON 4 MG/2 ML VIAL IVPUSH PRN ×2 (16:14→17:36)
[2021-04-13] MEDS ORDERED: oxyCODONE HCL 5 MG TABLET PO PRN ×2 (17:10→17:36)
[2021-04-13] MEDS ORDERED: guaiFENesin 200 MG/10 ML 10 ML UNIT-DOSE CUPS PO PRN (17:36)
[2021-04-13] MEDS ORDERED: ALBUTEROL SO4 2.5/IPRATROPIUM 0.5 INH SOL 3 ML VIAL.NEB. NEB PRN (17:36)
[2021-04-13] MEDS ORDERED: ACETAMINOPHEN 325 MG TABLET (FP) PO PRN (17:36)
[2021-04-13] MEDS: MEMANTINE HCL 5 MG TABLET (UD) PO SCH (23:21)
[2021-04-14] MEDS: predniSONE 10 MG TABLET (UD) PO SCH (09:42)
[2021-04-14] MEDS: ISOSORBIDE MONONITRATE 60 MG TAB.SR.24H (FP) PO SCH (09:42)
[2021-04-14] MEDS: MEMANTINE HCL 5 MG TABLET (UD) PO SCH (21:07)
[2021-04-15] MEDS ORDERED: SODIUM CHLORIDE 250 ML IV PRN (07:00)
[2021-04-15] MEDS ORDERED: EPOETIN ALFA-EPBX 3,000 UNIT/ML VIAL SQ ONE (08:00)
[2021-04-15] MEDS ORDERED: HEPARIN NA (PORCINE) 5,000 UNITS/ML 1ML VIAL IVPUSH ONE (08:00)
[2021-04-15 08:07] LABS: HEMATOCRIT 27.2 % (35.4-49); HEMOGLOBIN 8.9 GM/dL (11.7-16.9); MCH 33.6 pg (25.7-33.7); MCHC 32.9 g/dl (32.0-35.9); MEAN CELL VOLUME 102.2 fl (80-96); PLATELET COUNT 138 10^3/uL (134-434); RBC 2.66 M/mm3 (4.00-5.60); RDW 16.2 % (11.9-15.9); WHITE BLOOD COUNT 10.2 K/mm3 (4.0-10.0)
[2021-04-15 08:24] LABS: CALCIUM 8.1 mg/dL (8.5-10.1)
[2021-04-15 08:25] LABS: BLOOD UREA NITROGEN 50.3 mg/dL (7-18)
[2021-04-15 08:28] LABS: CREATININE 3.4 mg/dL (0.55-1.3)
[2021-04-15] MEDS: ISOSORBIDE MONONITRATE 60 MG TAB.SR.24H (FP) PO SCH (11:02)
[2021-04-15] MEDS: predniSONE 10 MG TABLET (UD) PO SCH (11:02)
[2021-04-15 14:59] VITALS: BP 142/55; PULSE 71; TEMP 97.3
== END 2021-04-15 16:30 | DRG 194 ==
LOC: JER 23:33 → JERBED 04-09 06:40 → J4W 04-09 12:59
PROVIDERS: ADMIT Family Medicine; ATTEND Family Medicine
PROC: 0HQ0XZZ Repair Scalp Skin, External Approach (ICD-10-PCS; principal; 2021-04-09)
PROC: 5A1D70Z Performance of Urinary Filtration, Intermittent, Less than 6 Hours Per Day (ICD-10-PCS; 2021-04-09)
PROC: 5A1D70Z Performance of Urinary Filtration, Intermittent, Less than 6 Hours Per Day (ICD-10-PCS; 2021-04-13)
PROC: 5A1D70Z Performance of Urinary Filtration, Intermittent, Less than 6 Hours Per Day (ICD-10-PCS; 2021-04-15)
DX: I13.2 Hypertensive heart and chronic kidney disease with heart failure and with stage 5 chronic kidney disease, or end stage renal disease (principal); F03.90 Unspecified dementia, unspecified severity, without behavioral disturbance, psychotic disturbance, mood disturbance, and anxiety; I48.91 Unspecified atrial fibrillation; I50.22 Chronic systolic (congestive) heart failure; J44.9 Chronic obstructive pulmonary disease, unspecified; K21.9 Gastro-esophageal reflux disease without esophagitis; D72.829 Elevated white blood cell count, unspecified; S01.01XA Laceration without foreign body of scalp, initial encounter; N18.6 End stage renal disease; E87.5 Hyperkalemia; M62.82 Rhabdomyolysis; E87.70 Fluid overload, unspecified; R26.9 Unspecified abnormalities of gait and mobility; D64.9 Anemia, unspecified; W01.0XXA Fall on same level from slipping, tripping and stumbling without subsequent striking against object, initial encounter; Y92.098 Other place in other non-institutional residence as the place of occurrence of the external cause; Z86.73 Personal history of transient ischemic attack (TIA), and cerebral infarction without residual deficits; Z99.2 Dependence on renal dialysis; I34.0 Nonrheumatic mitral (valve) insufficiency
CPT/HCPCS: 36415; 70450-TC; 71045-TC-FY; 72125-TC; 80048; 80053; 82550; 82553; 82607; 83735; 83880; 84100; 84443; 84484; 85025; 85027; 85610; 85730; 93005; 93010; 94640; 94760; 97116-GP; 97161-GP; 99285-25; C9803; J1644; Q5106; U0003; U0005

== ENCOUNTER 2021-05-02 00:58 | Inpatient (IN) | payer OTHER ==
[2021-05-02 02:21] LABS: BASO % 0.3 % (0-2.0); EOS % 1.8 % (0-4.5); HEMATOCRIT 28.2 % (35.4-49); HEMOGLOBIN 9.5 GM/dL (11.7-16.9); LYMPH % 28.3 % (8-40); MCH 33.8 pg (25.7-33.7); MCHC 33.6 g/dl (32.0-35.9); MEAN CELL VOLUME 100.5 fl (80-96); MEAN PLT VOLUME 7.9 fl (7.5-11.1); MONO % 12.3 % (3.8-10.2); NEUT % 57.3 % (42.8-82.8); PLATELET COUNT 312 10^3/uL (134-434); RBC 2.81 M/mm3 (4.00-5.60); WHITE BLOOD COUNT 12.5 K/mm3 (4.0-10.0)
[2021-05-02 02:28] LABS: INR 1.57 (0.83-1.09); PROTHROMBIN TIME (PATIENT) 19.1 SEC (9.7-13.0)
[2021-05-02 02:31] LABS: ACTIVATED PTT 28.9 SECONDS (25.2-36.5)
[2021-05-02 02:36] LABS: VENOUS O2 SATURATION 32.4 % (70-80); VENOUS PCO2 49.4 mmHg (38-52); VENOUS PH 7.395 (7.310-7.410)
[2021-05-02 02:43] LABS: ALBUMIN 2.4 g/dl (3.4-5.0); BLOOD UREA NITROGEN 52.5 mg/dL (7-18); CALCIUM 8.2 mg/dL (8.5-10.1)
[2021-05-02 02:47] LABS: CREATININE 4.6 mg/dL (0.55-1.3)
[2021-05-02 02:48] LABS: BILIRUBIN,TOTAL 0.5 mg/dL (0.2-1); TOT PROT 7.1 g/dl (6.4-8.2)
[2021-05-02] MEDS ORDERED: GENTAMICIN SULFATE 0.3% OPHTHALMIC (EYE DROPS) 5ML BOTTLE OU ONE (05:03)
[2021-05-02] MEDS ORDERED: VANCOMYCIN 1 GM in D5W (PRE-DOCKED) 1,000 MG/250 ML IVPB ONE (05:03)
[2021-05-02] MEDS ORDERED: PIPERACILLIN/TAZOB 3.375 GM 3.375 GM in DEXTROSE 5%-WATER - 50 ML IVPB ONE (05:03)
[2021-05-02] MEDS ORDERED: PIPERACILLIN/TAZOB 3.375 GM 3.375 GM/50 ML BAG IVPB ONE (05:06)
[2021-05-02] MEDS ORDERED: GENTAMICIN SULFATE 0.3% OPHTHALMIC (EYE DROPS) 5ML BOTTLE ONE (05:06)
[2021-05-02] MEDS ORDERED: VANCOMYCIN 1 GRAM (PRE-DOCKED) 1,000 MG/250 ML BAG IVPB ONE (05:37)
[2021-05-02] MEDS ORDERED: ALBUTEROL SO4 2.5/IPRATROPIUM 0.5 INH SOL 3 ML VIAL.NEB. NEB PRN (06:15)
[2021-05-02] MEDS ORDERED: guaiFENesin 200 MG/10 ML 10 ML UNIT-DOSE CUPS PO PRN (06:15)
[2021-05-02] MEDS ORDERED: morphine CARPU-JECT 2 MG/1 ML DISP.SYRIN IVPUSH ONE ×2 (06:17→08:30)
[2021-05-02] MEDS ORDERED: MORPHINE SULFATE 2 MG/ML VIAL ONE ×2 (06:40→08:37)
[2021-05-02] MEDS ORDERED: APIXABAN 2.5 MG TABLET ONE ×2 (09:13→22:27)
[2021-05-02] MEDS ORDERED: ISOSORBIDE MONONITRATE 60 MG TAB.SR.24H (FP) PO ONE (09:14)
[2021-05-02] MEDS ORDERED: predniSONE 10 MG TABLET (UD) ONE (09:14)
[2021-05-02] MEDS: ISOSORBIDE MONONITRATE 60 MG TAB.SR.24H (FP) PO SCH (09:27)
[2021-05-02] MEDS: APIXABAN 2.5 MG TABLET PO SCH ×2 (09:27→22:50)
[2021-05-02] MEDS: predniSONE 10 MG TABLET (UD) PO SCH (09:27)
[2021-05-02 09:29] LABS: EPI CELLS 28 /uL (0-25.1); HYALINE CASTS 2 /uL (0-3.1); URINE APPEARANCE TURBID; URINE BACTERIA 3272 /uL (0-1359); URINE BILIRUBIN NEGATIVE (NEGATIVE); URINE COLOR YELLOW; URINE GLUCOSE (UA) NEGATIVE (NEGATIVE); URINE KETONE NEGATIVE (NEGATIVE); URINE LEUK ESTERASE 3+ (NEGATIVE); URINE NITRITE NEGATIVE (NEGATIVE); URINE PROTEIN 3+ (NEGATIVE); URINE RBC 377 /uL (0-23.9); URINE UROBILINOGEN 0.2 mg/dL (0.2-1.0); URINE WBC 17763 /uL (0-25.8)
[2021-05-02] MEDS ORDERED: ENOXAPARIN NA (PORCINE) 80 MG/0.8 ML DISP.SYRIN SQ ONE ×2 (16:54→17:21)
[2021-05-02] MEDS ORDERED: PIPERACILLIN/TAZOB 2.25 GM 2.25 GM/50 ML BAG IVPB ONE ×2 (17:18→22:27)
[2021-05-02] MEDS ORDERED: ENOXAPARIN NA (PORCINE) 40 MG/0.4 ML DISP.SYRIN SQ ONE (17:18)
[2021-05-02] MEDS: PIPERACILLIN/TAZOB 2.25 GM 2.25 GM in DEXTROSE 5%-WATER - 50 ML IVPB SCH ×2 (17:23→22:50)
[2021-05-02 17:47] LABS: URIC ACID 6.9 mg/dL (2.6-7.2)
[2021-05-02] MEDS: MEMANTINE HCL 5 MG TABLET (UD) PO SCH (22:50)
[2021-05-03 04:44] VITALS: BMI 22.8
[2021-05-03] MEDS: ACETAMINOPHEN 325 MG TABLET (FP) PO PRN (05:51)
[2021-05-03] MEDS: APIXABAN 2.5 MG TABLET PO SCH ×2 (09:40→21:17)
[2021-05-03] MEDS: ISOSORBIDE MONONITRATE 60 MG TAB.SR.24H (FP) PO SCH (09:40)
[2021-05-03] MEDS: predniSONE 10 MG TABLET (UD) PO SCH (09:40)
[2021-05-03 10:26] LABS: BASO % 0.6 % (0-2.0); EOS % 2.6 % (0-4.5); HEMATOCRIT 26.4 % (35.4-49); HEMOGLOBIN 8.9 GM/dL (11.7-16.9); MCH 33.9 pg (25.7-33.7); MCHC 33.7 g/dl (32.0-35.9); MEAN CELL VOLUME 100.7 fl (80-96); MEAN PLT VOLUME 9.1 fl (7.5-11.1); MONO % 11.6 % (3.8-10.2); NEUT % 57.2 % (42.8-82.8); PLATELET COUNT 322 10^3/uL (134-434); RBC 2.62 M/mm3 (4.00-5.60); WHITE BLOOD COUNT 12.7 K/mm3 (4.0-10.0)
[2021-05-03 10:59] LABS: CALCIUM 8.1 mg/dL (8.5-10.1)
[2021-05-03 11:00] LABS: BLOOD UREA NITROGEN 75.8 mg/dL (7-18)
[2021-05-03 11:03] LABS: CREATININE 5.3 mg/dL (0.55-1.3)
[2021-05-03] MEDS: PIPERACILLIN/TAZOB 2.25 GM 2.25 GM in DEXTROSE 5%-WATER - 50 ML IVPB SCH (11:29)
[2021-05-03] MEDS: MORPHINE SULFATE 2 MG/ML VIAL IVPUSH PRN ×2 (11:30→21:18)
[2021-05-03] MEDS ORDERED: CEFTRIAXONE 1 GM in DEXTROSE 5%-WATER - 50 ML IVPB SCH (11:30)
[2021-05-03] MEDS ORDERED: SODIUM CHLORIDE 250 ML IV PRN (13:36)
[2021-05-03] MEDS ORDERED: HEPARIN NA (PORCINE) 5,000 UNITS/ML 1ML VIAL IVPUSH ONE (13:36)
[2021-05-03] MEDS ORDERED: EPOETIN ALFA-EPBX 4,000 UNIT/ML VIAL SQ ONE (14:15)
[2021-05-03] MEDS: CEFTRIAXONE 1 GM in DEXTROSE 5%-WATER - 50 ML IVPB SCH ×2 (17:22)
[2021-05-03] MEDS: MEMANTINE HCL 5 MG TABLET (UD) PO SCH (21:17)
[2021-05-04] MEDS: MORPHINE SULFATE 2 MG/ML VIAL IVPUSH PRN ×2 (04:13→09:36)
[2021-05-04] MEDS: ACETAMINOPHEN 325 MG TABLET (FP) PO PRN ×2 (08:00→19:22)
[2021-05-04] MEDS ORDERED: DEXTROSE 5%-WATER - 50 ML IVPB ONE (09:25)
[2021-05-04] MEDS ORDERED: cefTRIAXone SODIUM 1 GM VIAL ONE (09:25)
[2021-05-04] MEDS: APIXABAN 2.5 MG TABLET PO SCH (09:34)
[2021-05-04] MEDS: predniSONE 10 MG TABLET (UD) PO SCH (09:34)
[2021-05-04] MEDS: ISOSORBIDE MONONITRATE 60 MG TAB.SR.24H (FP) PO SCH (09:34)
[2021-05-04] MEDS: CEFTRIAXONE 1 GM in DEXTROSE 5%-WATER - 50 ML IVPB SCH (09:34)
[2021-05-04] MEDS ORDERED: APIXABAN 5 MG TABLET PO SCH (10:00)
[2021-05-04 10:37] LABS: BASO % 0.3 % (0-2.0); EOS % 1.2 % (0-4.5); HEMATOCRIT 27.6 % (35.4-49); HEMOGLOBIN 9.3 GM/dL (11.7-16.9); LYMPH % 27.4 % (8-40); MCH 33.7 pg (25.7-33.7); MCHC 33.6 g/dl (32.0-35.9); MEAN CELL VOLUME 100.3 fl (80-96); MEAN PLT VOLUME 8.8 fl (7.5-11.1); MONO % 12.5 % (3.8-10.2); NEUT % 58.6 % (42.8-82.8); PLATELET COUNT 344 10^3/uL (134-434); RBC 2.75 M/mm3 (4.00-5.60); RDW 15.8 % (11.9-15.9); WHITE BLOOD COUNT 12.8 K/mm3 (4.0-10.0)
[2021-05-04 11:13] LABS: CALCIUM 8.1 mg/dL (8.5-10.1)
[2021-05-04 11:19] LABS: BLOOD UREA NITROGEN 35.9 mg/dL (7-18)
[2021-05-04] MEDS: MEMANTINE HCL 5 MG TABLET (UD) PO SCH (21:45)
[2021-05-04] MEDS: APIXABAN 5 MG TABLET PO SCH (21:46)
[2021-05-05] MEDS: ACETAMINOPHEN 325 MG TABLET (FP) PO PRN (02:44)
[2021-05-05] MEDS ORDERED: SODIUM CHLORIDE 250 ML IV PRN (09:31)
[2021-05-05] MEDS ORDERED: HEPARIN NA (PORCINE) 5,000 UNITS/ML 1ML VIAL IVPUSH ONE (09:45)
[2021-05-05] MEDS ORDERED: EPOETIN ALFA-EPBX 4,000 UNIT/ML VIAL SQ ONE (09:45)
[2021-05-05] MEDS ORDERED: VANCOMYCIN 1 GRAM (PRE-DOCKED) 1,000 MG/250 ML BAG IVPB ONE (09:45)
[2021-05-05] MEDS: APIXABAN 5 MG TABLET PO SCH ×2 (10:57→20:59)
[2021-05-05] MEDS: predniSONE 20 MG TABLET (UD) PO SCH (10:57)
[2021-05-05 15:57] LABS: HEMATOCRIT 28.2 % (35.4-49); HEMOGLOBIN 9.4 GM/dL (11.7-16.9); MCH 33.8 pg (25.7-33.7); MCHC 33.3 g/dl (32.0-35.9); MEAN CELL VOLUME 101.5 fl (80-96); MEAN PLT VOLUME 8.7 fl (7.5-11.1); PLATELET COUNT 391 10^3/uL (134-434); RBC 2.78 M/mm3 (4.00-5.60); RDW 15.7 % (11.9-15.9); WHITE BLOOD COUNT 11.1 K/mm3 (4.0-10.0)
[2021-05-05 16:11] LABS: CALCIUM 8.2 mg/dL (8.5-10.1)
[2021-05-05 16:12] LABS: BLOOD UREA NITROGEN 52.8 mg/dL (7-18)
[2021-05-05 16:15] LABS: CREATININE 3.7 mg/dL (0.55-1.3)
[2021-05-05] MEDS ORDERED: DEXTROSE 5%-WATER - 50 ML IVPB ONE (18:21)
[2021-05-05] MEDS ORDERED: cefTRIAXone SODIUM 1 GM VIAL ONE (18:21)
[2021-05-05] MEDS: CEFTRIAXONE 1 GM in DEXTROSE 5%-WATER - 50 ML IVPB SCH (18:30)
[2021-05-05] MEDS: ISOSORBIDE MONONITRATE 60 MG TAB.SR.24H (FP) PO SCH (18:32)
[2021-05-05] MEDS: MORPHINE SULFATE 2 MG/ML VIAL IVPUSH PRN (20:54)
[2021-05-05] MEDS: MEMANTINE HCL 5 MG TABLET (UD) PO SCH (20:59)
[2021-05-06] MEDS: ACETAMINOPHEN 325 MG TABLET (FP) PO PRN ×2 (02:07→13:22)
[2021-05-06] MEDS: MORPHINE SULFATE 2 MG/ML VIAL IVPUSH PRN ×2 (09:03→17:51)
[2021-05-06] MEDS ORDERED: PT OWN MED DRAWER 7, Y5N ONE (10:32)
[2021-05-06] MEDS: ISOSORBIDE MONONITRATE 60 MG TAB.SR.24H (FP) PO SCH (10:41)
[2021-05-06] MEDS: predniSONE 20 MG TABLET (UD) PO SCH (10:41)
[2021-05-06] MEDS: APIXABAN 5 MG TABLET PO SCH ×2 (10:41→22:24)
[2021-05-06] MEDS ORDERED: cefTRIAXone SODIUM 1 GM VIAL ONE (10:55)
[2021-05-06] MEDS: CEFTRIAXONE 1 GM in DEXTROSE 5%-WATER - 50 ML IVPB SCH (11:06)
[2021-05-06] MEDS: MEMANTINE HCL 5 MG TABLET (UD) PO SCH (22:25)
[2021-05-07] MEDS ORDERED: PT OWN MED DRAWER 7, Y5N ONE (09:01)
[2021-05-07] MEDS: predniSONE 20 MG TABLET (UD) PO SCH (09:09)
[2021-05-07] MEDS: APIXABAN 5 MG TABLET PO SCH ×2 (09:09→22:05)
[2021-05-07] MEDS ORDERED: SODIUM CHLORIDE 250 ML IV PRN (10:00)
[2021-05-07] MEDS ORDERED: EPOETIN ALFA-EPBX 4,000 UNIT/ML VIAL SQ ONE (10:00)
[2021-05-07] MEDS ORDERED: HEPARIN NA (PORCINE) 5,000 UNITS/ML 1ML VIAL IVPUSH ONE (10:00)
[2021-05-07] MEDS: ISOSORBIDE MONONITRATE 60 MG TAB.SR.24H (FP) PO SCH (15:43)
[2021-05-07] MEDS: MEMANTINE HCL 5 MG TABLET (UD) PO SCH (22:05)
[2021-05-08] MEDS: ISOSORBIDE MONONITRATE 60 MG TAB.SR.24H (FP) PO SCH (10:07)
[2021-05-08] MEDS: predniSONE 20 MG TABLET (UD) PO SCH (10:07)
[2021-05-08] MEDS: APIXABAN 5 MG TABLET PO SCH ×2 (10:07→22:10)
[2021-05-08 11:42] LABS: HEMATOCRIT 28.3 % (35.4-49); HEMOGLOBIN 9.3 GM/dL (11.7-16.9); MCH 33.6 pg (25.7-33.7); MEAN CELL VOLUME 101.8 fl (80-96); MEAN PLT VOLUME 8.8 fl (7.5-11.1); PLATELET COUNT 412 10^3/uL (134-434); RBC 2.78 M/mm3 (4.00-5.60); RDW 16.1 % (11.9-15.9); WHITE BLOOD COUNT 16.3 K/mm3 (4.0-10.0)
[2021-05-08 12:02] LABS: CALCIUM 7.8 mg/dL (8.5-10.1)
[2021-05-08 12:03] LABS: BLOOD UREA NITROGEN 41.5 mg/dL (7-18)
[2021-05-08 12:05] LABS: CREATININE 2.9 mg/dL (0.55-1.3)
[2021-05-08] MEDS: MEMANTINE HCL 5 MG TABLET (UD) PO SCH (22:10)
[2021-05-09] MEDS: predniSONE 20 MG TABLET (UD) PO SCH (10:25)
[2021-05-09] MEDS: APIXABAN 5 MG TABLET PO SCH ×2 (10:25→22:01)
[2021-05-09] MEDS: ISOSORBIDE MONONITRATE 60 MG TAB.SR.24H (FP) PO SCH (10:25)
[2021-05-09 11:22] LABS: BASO % 0.2 % (0-2.0); EOS % 0.4 % (0-4.5); HEMATOCRIT 28.4 % (35.4-49); HEMOGLOBIN 9.3 GM/dL (11.7-16.9); LYMPH % 26.5 % (8-40); MCH 33.9 pg (25.7-33.7); MCHC 32.8 g/dl (32.0-35.9); MEAN CELL VOLUME 103.3 fl (80-96); MONO % 8.4 % (3.8-10.2); NEUT % 64.5 % (42.8-82.8); PLATELET COUNT 448 10^3/uL (134-434); RBC 2.75 M/mm3 (4.00-5.60); WHITE BLOOD COUNT 18.4 K/mm3 (4.0-10.0)
[2021-05-09 11:54] LABS: BLOOD UREA NITROGEN 62.5 mg/dL (7-18); CALCIUM 8.1 mg/dL (8.5-10.1)
[2021-05-09 11:55] LABS: MAGNESIUM 1.9 mg/dL (1.8-2.4)
[2021-05-09 11:57] LABS: CREATININE 3.8 mg/dL (0.55-1.3)
[2021-05-09] MEDS: MEMANTINE HCL 5 MG TABLET (UD) PO SCH (22:01)
[2021-05-10] MEDS ORDERED: LORazepam 1 MG TABLET PO ONE (09:55)
[2021-05-10] MEDS ORDERED: EPOETIN ALFA-EPBX 4,000 UNIT/ML VIAL IVPUSH ONE (11:00)
[2021-05-10] MEDS ORDERED: PT OWN MED DRAWER 7, Y5N ONE (14:36)
[2021-05-10] MEDS: predniSONE 20 MG TABLET (UD) PO SCH (14:43)
[2021-05-10] MEDS: ISOSORBIDE MONONITRATE 60 MG TAB.SR.24H (FP) PO SCH (14:44)
[2021-05-10] MEDS: APIXABAN 5 MG TABLET PO SCH ×2 (14:44→21:40)
[2021-05-10] MEDS: MEMANTINE HCL 5 MG TABLET (UD) PO SCH (21:40)
[2021-05-11 09:37] LABS: HEMATOCRIT 25.9 % (35.4-49); HEMOGLOBIN 8.6 GM/dL (11.7-16.9); MCH 34.3 pg (25.7-33.7); MCHC 33.2 g/dl (32.0-35.9); MEAN CELL VOLUME 103.4 fl (80-96); MEAN PLT VOLUME 8.5 fl (7.5-11.1); PLATELET COUNT 385 10^3/uL (134-434); RDW 16.6 % (11.9-15.9); WHITE BLOOD COUNT 17.6 K/mm3 (4.0-10.0)
[2021-05-11] MEDS: predniSONE 20 MG TABLET (UD) PO SCH (10:11)
[2021-05-11] MEDS: APIXABAN 5 MG TABLET PO SCH ×2 (10:12→21:07)
[2021-05-11] MEDS: ISOSORBIDE MONONITRATE 60 MG TAB.SR.24H (FP) PO SCH (10:12)
[2021-05-11 10:17] LABS: BLOOD UREA NITROGEN 42.2 mg/dL (7-18)
[2021-05-11 10:18] LABS: CALCIUM 7.7 mg/dL (8.5-10.1)
[2021-05-11 10:20] LABS: CREATININE 2.7 mg/dL (0.55-1.3)
[2021-05-11 12:29] LABS: ANISOCYTOSIS 1+; MACROCYTOSIS 0; OVALOCYTE 1+; PLATELET ESTIMATE NORMAL
[2021-05-11] MEDS ORDERED: LORazepam 1 MG TABLET PO ONE (18:45)
[2021-05-11] MEDS: MEMANTINE HCL 5 MG TABLET (UD) PO SCH (21:07)
[2021-05-12] MEDS ORDERED: EPOETIN ALFA-EPBX 4,000 UNIT/ML VIAL IVPUSH ONE (09:00)
[2021-05-12] MEDS ORDERED: SODIUM CHLORIDE 250 ML IV PRN (09:00)
[2021-05-12 09:47] LABS: BASO % 0.3 % (0-2.0); EOS % 0.3 % (0-4.5); HEMATOCRIT 27.4 % (35.4-49); LYMPH % 21.3 % (8-40); MCH 33.9 pg (25.7-33.7); MEAN CELL VOLUME 102.7 fl (80-96); MEAN PLT VOLUME 8.7 fl (7.5-11.1); MONO % 5.8 % (3.8-10.2); NEUT % 72.3 % (42.8-82.8); PLATELET COUNT 409 10^3/uL (134-434); RBC 2.67 M/mm3 (4.00-5.60); RDW 16.9 % (11.9-15.9); WHITE BLOOD COUNT 17.6 K/mm3 (4.0-10.0)
[2021-05-12 10:06] LABS: CALCIUM 8.2 mg/dL (8.5-10.1)
[2021-05-12 10:07] LABS: BLOOD UREA NITROGEN 59.4 mg/dL (7-18)
[2021-05-12 10:10] LABS: CREATININE 3.3 mg/dL (0.55-1.3)
[2021-05-12] MEDS: ISOSORBIDE MONONITRATE 60 MG TAB.SR.24H (FP) PO SCH (12:24)
[2021-05-12] MEDS: predniSONE 20 MG TABLET (UD) PO SCH (12:24)
[2021-05-12] MEDS: APIXABAN 5 MG TABLET PO SCH ×2 (12:24→21:08)
[2021-05-12] MEDS: MEMANTINE HCL 5 MG TABLET (UD) PO SCH (21:09)
[2021-05-13] MEDS: APIXABAN 5 MG TABLET PO SCH ×2 (10:32→21:08)
[2021-05-13] MEDS: ISOSORBIDE MONONITRATE 60 MG TAB.SR.24H (FP) PO SCH (10:32)
[2021-05-13] MEDS: predniSONE 20 MG TABLET (UD) PO SCH (10:32)
[2021-05-13] MEDS: MEMANTINE HCL 5 MG TABLET (UD) PO SCH (21:08)
[2021-05-14] MEDS ORDERED: SODIUM CHLORIDE 250 ML IV PRN (07:45)
[2021-05-14] MEDS ORDERED: EPOETIN ALFA-EPBX 10,000 UNIT/ML VIAL SQ ONE (07:45)
[2021-05-14] MEDS ORDERED: EPOETIN ALFA-EPBX 4,000 UNIT, EPOETIN ALFA-EPBX 10,000 UNIT IVPUSH ONE (10:00)
[2021-05-14] MEDS: ISOSORBIDE MONONITRATE 60 MG TAB.SR.24H (FP) PO SCH (12:39)
[2021-05-14] MEDS: predniSONE 20 MG TABLET (UD) PO SCH (12:39)
[2021-05-14] MEDS: APIXABAN 5 MG TABLET PO SCH (12:39)
[2021-05-14 14:19] VITALS: BP 155/75; PULSE 73; TEMP 97.8
[2021-05-15] MEDS ORDERED: predniSONE 10 MG TABLET (UD) PO SCH (10:00)
[2021-05-18] MEDS ORDERED: predniSONE 5 MG TABLET (UD) PO SCH (10:00)
== END 2021-05-14 14:53 | DRG 383 ==
LOC: JER 00:58 → JERBED 05:13 → J5S 23:51
PROVIDERS: ADMIT Internal Medicine; ATTEND Family Medicine
PROC: 5A1D70Z Performance of Urinary Filtration, Intermittent, Less than 6 Hours Per Day (ICD-10-PCS; principal; 2021-05-03)
PROC: 5A1D70Z Performance of Urinary Filtration, Intermittent, Less than 6 Hours Per Day (ICD-10-PCS; 2021-05-05)
PROC: 5A1D70Z Performance of Urinary Filtration, Intermittent, Less than 6 Hours Per Day (ICD-10-PCS; 2021-05-07)
PROC: 5A1D70Z Performance of Urinary Filtration, Intermittent, Less than 6 Hours Per Day (ICD-10-PCS; 2021-05-10)
PROC: 5A1D70Z Performance of Urinary Filtration, Intermittent, Less than 6 Hours Per Day (ICD-10-PCS; 2021-05-12)
PROC: 5A1D70Z Performance of Urinary Filtration, Intermittent, Less than 6 Hours Per Day (ICD-10-PCS; 2021-05-14)
DX: L03.114 Cellulitis of left upper limb (principal); G30.9 Alzheimer's disease, unspecified; F02.80 Dementia in other diseases classified elsewhere, unspecified severity, without behavioral disturbance, psychotic disturbance, mood disturbance, and anxiety; J44.9 Chronic obstructive pulmonary disease, unspecified; K21.9 Gastro-esophageal reflux disease without esophagitis; F32.9 Major depressive disorder, single episode, unspecified; I48.91 Unspecified atrial fibrillation; G90.522 Complex regional pain syndrome I of left lower limb; D64.9 Anemia, unspecified; F31.9 Bipolar disorder, unspecified; L03.116 Cellulitis of left lower limb; I82.432 Acute embolism and thrombosis of left popliteal vein; R41.82 Altered mental status, unspecified; D72.829 Elevated white blood cell count, unspecified; I13.2 Hypertensive heart and chronic kidney disease with heart failure and with stage 5 chronic kidney disease, or end stage renal disease; N18.6 End stage renal disease; I50.9 Heart failure, unspecified; Z86.73 Personal history of transient ischemic attack (TIA), and cerebral infarction without residual deficits; Z99.2 Dependence on renal dialysis
CPT/HCPCS: 36415; 71045-TC-FY; 73110-TC-LT-FY; 73130-TC-LT-FY; 80048; 80053; 81003; 82803; 82962; 83605; 83735; 84484; 84550; 85025; 85027; 85610; 85730; 86803; 86850; 86900; 86901; 87040; 87086; 87186; 87340; 93005; 93010; 93971-TC; 97116-GP; 97161-GP; 99285-25; C9803; G0480; J1644; Q5106; U0003; U0005

== ENCOUNTER 2021-06-23 09:13 | Emergency (ER) | payer OTHER ==
[2021-06-23 09:31] VITALS: TEMP 97.1; BMI 23.8
[2021-06-23] MEDS ORDERED: HALOPERIDOL LACTATE 5 MG/ML IM ONE (10:02)
[2021-06-23] MEDS ORDERED: HALOPERIDOL LACTATE 5 MG/ML ONE (10:03)
[2021-06-23 10:55] LABS: BASO % 0.3 % (0-2.0); EOS % 6.3 % (0-4.5); HEMATOCRIT 33.5 % (35.4-49); HEMOGLOBIN 11.2 GM/dL (11.7-16.9); LYMPH % 30.2 % (8-40); MCH 33.6 pg (25.7-33.7); MCHC 33.5 g/dl (32.0-35.9); MEAN CELL VOLUME 100.5 fl (80-96); MEAN PLT VOLUME 8.5 fl (7.5-11.1); MONO % 16.4 % (3.8-10.2); NEUT % 46.8 % (42.8-82.8); PLATELET COUNT 180 10^3/uL (134-434); RBC 3.33 M/mm3 (4.00-5.60); WHITE BLOOD COUNT 12.7 K/mm3 (4.0-10.0)
[2021-06-23 11:02] LABS: INR 1.48 (0.83-1.09); PROTHROMBIN TIME (PATIENT) 18.3 SEC (9.7-13.0)
[2021-06-23 11:05] LABS: ACTIVATED PTT 36.4 SECONDS (25.2-36.5)
[2021-06-23 11:19] LABS: CALCIUM 8.6 mg/dL (8.5-10.1)
[2021-06-23 11:20] LABS: ALBUMIN 2.6 g/dl (3.4-5.0); BLOOD UREA NITROGEN 75.8 mg/dL (7-18)
[2021-06-23 11:25] LABS: BILIRUBIN,TOTAL 0.9 mg/dL (0.2-1); TOT PROT 7.4 g/dl (6.4-8.2)
[2021-06-23] MEDS ORDERED: CEPHALEXIN MONOHYDRATE 500 MG CAPSULE (UD) PO ONE (11:37)
[2021-06-23] MEDS ORDERED: CEPHALEXIN MONOHYDRATE 250 MG CAPSULE (FP) ONE (11:46)
[2021-06-23 18:23] VITALS: BP 137/64; PULSE 79
== END 2021-06-23 18:35 | disposition home or self-care (01) ==
LOC: JER 09:13
PROC: 3E023GC Introduction of Other Therapeutic Substance into Muscle, Percutaneous Approach (ICD-10-PCS; principal; 2021-06-23)
DX: R04.0 Epistaxis (principal)
CPT/HCPCS: 36415; 80053; 85025; 85610; 85730; 86850; 86900; 86901; 96372; 99284-25

== ENCOUNTER 2022-04-28 17:06 | Observation (INO) | payer OTHER ==
[2022-04-28 18:46] LABS: BASO % 0.8 % (0-2.0); EOS % 3.7 % (0-4.5); HEMOGLOBIN 10.7 GM/dL (11.7-16.9); LYMPH % 27.9 % (8-40); MCH 35.1 pg (25.7-33.7); MCHC 34.6 g/dl (32.0-35.9); MEAN CELL VOLUME 101.6 fl (80-96); MEAN PLT VOLUME 9.1 fl (7.5-11.1); MONO % 11.5 % (3.8-10.2); NEUT % 56.1 % (42.8-82.8); PLATELET COUNT 189 10^3/uL (134-434); RBC 3.05 M/mm3 (4.00-5.60); RDW 14.5 % (11.9-15.9); WHITE BLOOD COUNT 9.8 K/mm3 (4.0-10.0)
[2022-04-28 19:12] LABS: CHLORIDE 100 mmol/L (98-107); SODIUM 138 mmol/L (136-145)
[2022-04-28 19:14] LABS: CALCIUM 8.6 mg/dL (8.5-10.1)
[2022-04-28 19:15] LABS: ALBUMIN 3.3 g/dl (3.4-5.0); ANION GAP 17 MMOL/L (8-16); CO2 21 mmol/L (21-32); GLUCOSE,RANDOM 89 mg/dL (74-106); MAGNESIUM 3.2 mg/dL (1.8-2.4)
[2022-04-28 19:17] LABS: SGPT/ALT 19 U/L (13-61)
[2022-04-28 19:18] LABS: SGOT/AST 17 U/L (15-37)
[2022-04-28 19:19] LABS: BILIRUBIN,TOTAL 0.2 mg/dL (0.2-1); TOT PROT 8.1 g/dl (6.4-8.2)
[2022-04-28 19:20] LABS: ALK PHOS 109 U/L (45-117)
[2022-04-28 19:21] LABS: BLOOD UREA NITROGEN 148.3 mg/dL (7-18); CREATININE 13.5 mg/dL (0.55-1.3)
[2022-04-28 19:46] LABS: PHOSPHOROUS 8.5 mg/dL (2.5-4.9)
[2022-04-29 00:47] VITALS: BMI 28.0
[2022-04-29] MEDS ORDERED: ALBUTEROL SO4 2.5/IPRATROPIUM 0.5 INH SOL 3 ML VIAL.NEB. NEB PRN (00:59)
[2022-04-29] MEDS ORDERED: SODIUM CHLORIDE 250 ML IV PRN ×2 (01:04→10:07)
[2022-04-29 04:28] LABS: EPI CELLS 4 /uL (0-25.1); HYALINE CASTS 1 /uL (0-3.1); PH,URINE 5.5 (5.0-8.0); URINE APPEARANCE CLEAR; URINE BACTERIA 31 /uL (0-1359); URINE BILIRUBIN NEGATIVE (NEGATIVE); URINE COLOR YELLOW; URINE GLUCOSE (UA) NEGATIVE (NEGATIVE); URINE KETONE NEGATIVE (NEGATIVE); URINE LEUK ESTERASE NEGATIVE (NEGATIVE); URINE NITRITE NEGATIVE (NEGATIVE); URINE PROTEIN 2+ (NEGATIVE); URINE RBC 6 /uL (0-23.9); URINE UROBILINOGEN 0.2 mg/dL (0.2-1.0); URINE WBC 13 /uL (0-25.8)
[2022-04-29 12:00] LABS: BASO % 0.4 % (0-2.0); EOS % 3.3 % (0-4.5); HEMATOCRIT 29.5 % (35.4-49); HEMOGLOBIN 10.1 GM/dL (11.7-16.9); LYMPH % 23.5 % (8-40); MCH 34.9 pg (25.7-33.7); MCHC 34.3 g/dl (32.0-35.9); MEAN CELL VOLUME 101.7 fl (80-96); MEAN PLT VOLUME 9.3 fl (7.5-11.1); MONO % 8.9 % (3.8-10.2); NEUT % 63.9 % (42.8-82.8); PLATELET COUNT 177 10^3/uL (134-434); RBC 2.91 M/mm3 (4.00-5.60); RDW 14.5 % (11.9-15.9); WHITE BLOOD COUNT 8.3 K/mm3 (4.0-10.0)
[2022-04-29 12:23] LABS: CHLORIDE 100 mmol/L (98-107); SODIUM 139 mmol/L (136-145)
[2022-04-29 12:25] LABS: CALCIUM 8.2 mg/dL (8.5-10.1)
[2022-04-29 12:26] LABS: ANION GAP 14 MMOL/L (8-16); CO2 25 mmol/L (21-32); GLUCOSE,RANDOM 178 mg/dL (74-106)
[2022-04-29 12:29] LABS: SGOT/AST 14 U/L (15-37); SGPT/ALT 17 U/L (13-61)
[2022-04-29 12:30] LABS: BILIRUBIN,TOTAL 0.4 mg/dL (0.2-1); TOT PROT 7.4 g/dl (6.4-8.2)
[2022-04-29 12:31] LABS: ALK PHOS 68 U/L (45-117); BLOOD UREA NITROGEN 93.6 mg/dL (7-18); CREATININE 9.4 mg/dL (0.55-1.3)
[2022-04-29] MEDS: QUEtiapine FUMARATE 25 MG TABLET PO SCH (15:34)
[2022-04-29] MEDS: APIXABAN 5 MG TABLET PO SCH ×2 (15:34→21:23)
[2022-04-29] MEDS: FUROSEMIDE 40 MG TABLET (FP) PO SCH (15:34)
[2022-04-29] MEDS: MEMANTINE HCL 10 MG TABLET (FP) PO SCH (15:34)
[2022-04-29] MEDS: SERTRALINE HCL 50 MG TABLET (FP) PO SCH (15:34)
[2022-04-29] MEDS: ISOSORBIDE MONONITRATE 60 MG TAB.SR.24H (FP) PO SCH (15:34)
[2022-04-30] MEDS: ISOSORBIDE MONONITRATE 60 MG TAB.SR.24H (FP) PO SCH (10:08)
[2022-04-30] MEDS: APIXABAN 5 MG TABLET PO SCH ×2 (10:08→21:53)
[2022-04-30] MEDS: MEMANTINE HCL 10 MG TABLET (FP) PO SCH (10:08)
[2022-04-30] MEDS: SERTRALINE HCL 50 MG TABLET (FP) PO SCH (10:08)
[2022-04-30] MEDS: FUROSEMIDE 40 MG TABLET (FP) PO SCH (12:51)
[2022-05-01] MEDS: SERTRALINE HCL 50 MG TABLET (FP) PO SCH (09:13)
[2022-05-01] MEDS: ISOSORBIDE MONONITRATE 60 MG TAB.SR.24H (FP) PO SCH (09:13)
[2022-05-01] MEDS: FUROSEMIDE 40 MG TABLET (FP) PO SCH (09:14)
[2022-05-01] MEDS: APIXABAN 5 MG TABLET PO SCH ×2 (09:14→21:24)
[2022-05-01] MEDS: MEMANTINE HCL 10 MG TABLET (FP) PO SCH (09:14)
[2022-05-02 10:27] VITALS: RESP 18
[2022-05-02] MEDS: APIXABAN 5 MG TABLET PO SCH (12:47)
[2022-05-02] MEDS: SERTRALINE HCL 50 MG TABLET (FP) PO SCH (12:48)
[2022-05-02] MEDS: QUEtiapine FUMARATE 25 MG TABLET PO SCH (12:48)
[2022-05-02] MEDS: FUROSEMIDE 40 MG TABLET (FP) PO SCH (12:48)
[2022-05-02] MEDS: MEMANTINE HCL 10 MG TABLET (FP) PO SCH (12:48)
[2022-05-02] MEDS: ISOSORBIDE MONONITRATE 60 MG TAB.SR.24H (FP) PO SCH (12:48)
[2022-05-02 13:09] VITALS: BP 136/56; PULSE 58; TEMP 98.1
== END 2022-05-02 15:03 ==
LOC: JER 17:06 → UNDOADMOB 19:44 → INTOOBSV 19:44 → JERBED 19:44 → J5S 23:12 → JERBED 23:12 → J5S 04-29 12:00
PROVIDERS: ADMIT Hospitalist; ATTEND Internal Medicine
DX: I13.2 Hypertensive heart and chronic kidney disease with heart failure and with stage 5 chronic kidney disease, or end stage renal disease (principal); N18.6 End stage renal disease; Z99.2 Dependence on renal dialysis; Z91.15 Patient's noncompliance with renal dialysis; Z20.822 Contact with and (suspected) exposure to COVID-19; I48.91 Unspecified atrial fibrillation; F31.9 Bipolar disorder, unspecified; K21.9 Gastro-esophageal reflux disease without esophagitis
CPT/HCPCS: 36415; 71045-TC-FY; 80053; 81003; 82962; 83735; 84100; 85025; 86803; 87340; 93005; 93010; 99285-25; C9803-CS; G0378; U0003; U0005